=== PATIENT | male | born 1955 | race Caucasian/White ===

== ENCOUNTER 2020-04-03 10:19 | Emergency (ER) | payer OTHER ==
[~2020-04-03] VITALS: Ht 182.9 cm; Wt 80.7 kg
[2020-04-03 10:26] VITALS: BP 159/98
--- NOTE | 2020-04-03 10:38 | NUR ---
64 Y/O MALE FROM HOME C/O LT SHOULDER, LT KNEE, AND LOWER BACK PAIN X 3 DAYS. PT STATES HE SLIPPED DOWN 4 STEPS 3 DAYS AGO, DENIES LOC. NO VISIBLE DEFORMITIES NOTED. STATES HE CANNOT MOVE LT SHOULDER/ARM DUE TO PAIN. 9/10 ACHING PAIN, AND HAS NOT TAKEN ANY MEDICATION FOR PAIN. POSITIONED FOR COMFORT. VSS MEDHX: ANXIETY, DEPRESSION, BIPOLAR, DM ALLERGIES: NKA
--- NOTE | 2020-04-03 10:41 | NUR ---
DR LAY AT BEDSIDE EXAMINING PT
[2020-04-03] MEDS ORDERED: IBUPROFEN 600 MG TAB PO ONE (10:45)
--- NOTE | 2020-04-03 10:53 | NUR ---
X-Ray at bedside.
--- NOTE | 2020-04-03 11:41 | NUR ---
AWAKE AND ALERT, HOB ELEVATED, PT SEATED UPR[employer]. VSS. WILL CONTINUE TO MONITOR
--- NOTE | 2020-04-03 12:17 | NUR ---
Dr. Pollard is evaluating the patient at bedside.
[2020-04-03 12:53] VITALS: BP 126/73
--- NOTE | 2020-04-03 12:54 | NUR ---
Patient discharged with v/s stable. Written and verbal after care instructions given and explained. Patient verbalized understanding. Ambulatory with steady gait. All questions addressed prior to discharge. Advised to follow up with PMD.
== END 2020-04-03 12:54 | disposition home or self-care (01) ==
LOC: MED 10:19
DX: S42.132A Displaced fracture of coracoid process, left shoulder, initial encounter for closed fracture (principal); S43.102A Unspecified dislocation of left acromioclavicular joint, initial encounter; E11.9 Type 2 diabetes mellitus without complications; F32.9 Major depressive disorder, single episode, unspecified; F41.9 Anxiety disorder, unspecified; W07.XXXA Fall from chair, initial encounter; Y93.89 Activity, other specified; Y92.89 Other specified places as the place of occurrence of the external cause; Y99.8 Other external cause status
CPT/HCPCS: 73030; 99283; Q0092